=== PATIENT | female | born 1935 | race Caucasian/White ===

== ENCOUNTER 2017-07-21 17:55 | Inpatient (IN) | payer MEDICARE, OTHER ==
[2017-07-21] MEDS ORDERED: SODIUM CHLORIDE 0.9% 1,000 ML IV STA (19:19)
--- NOTE | 2017-07-21 19:22 | ED ---
General Adult HPI - General Chief complaint: Syncope Stated complaint: syncope Time Seen by Provider: 07/21/17 18:43 Source: patient, family, EMS, RN notes reviewed Mode of arrival: EMS Limitations: no limitations, altered mental status - History of Present Illness Initial comments: Patient is a pleasant 81-year-old female presenting to the emergency department following syncopal episode. Episode occurred prior to arrival. Patient was outside looking at the jeronimo. Patient became unresponsive for up to 5 minutes. Patient felt fine prior to and since the episode and is currently symptom-free. Patient had an episode yesterday that was somewhat similar however did have some shaking yesterday. Patient has had some minimal episodes of chest discomfort recently that just last for a few seconds. No chest discomfort at all today. - Related Data Home Medications Medication Instructions Recorded Confirmed Albuterol Sulfate [Proair Hfa] 1 - 2 puff INHALATION RT-Q6H PRN 05/08/15 Levothyroxine Sodium [Synthroid] 75 mcg PO DAILY 05/08/15 07/21/17 Vitamin B Complex 1 cap PO DAILY 05/08/15 07/21/17 Vitamin E 1,000 unit PO DAILY 05/08/15 07/21/17 traMADol HCl [Ultram] 50 mg PO TID PRN 05/08/15 07/21/17 Atorvastatin [Lipitor] 20 mg PO HS 07/21/17 07/21/17 Citalopram Hydrobromide [CeleXA] 10 mg PO DAILY 07/21/17 07/21/17 Montelukast [Singulair] 10 mg PO DAILY 07/21/17 07/21/17 Omeprazole 40 mg PO DAILY 07/21/17 07/21/17 Sertraline [Zoloft] 50 mg PO DAILY 07/21/17 07/21/17 Topiramate 50 mg PO DAILY 07/21/17 07/21/17 amLODIPine BESYLATE [Norvasc] 2.5 mg PO DAILY 07/21/17 07/21/17 hydrOXYzine HCL [Atarax] 25 mg PO TID PRN 07/21/17 07/21/17 Allergies Allergy/AdvReac Type Severity Reaction Status Date / Time codeine Allergy Unknown Verified 07/21/17 18:52 Sulfa (Sulfonamide Allergy Unknown Verified 08/21/17 18:52 Antibiotics) Review of Systems ROS Statement: Those systems with pertinent positive or pertinent negative responses have been documented in the HPI. ROS Other: All systems not noted in ROS Statement are negative. Constitutional: Denies: fever Eyes: Denies: eye pain ENT: Denies: ear pain Respiratory: Denies: cough, dyspnea Cardiovascular: Denies: palpitations Endocrine: Denies: fatigue Gastrointestinal: Denies: abdominal pain Genitourinary: Denies: urgency Musculoskeletal: Denies: back pain Skin: Denies: rash Neurological: Denies: weakness Past Medical History Past Medical History: Asthma, Cancer, Chest Pain / Angina, GERD/Reflux, Hyperlipidemia, Hypertension, Osteoarthritis (OA), Thyroid Disorder Additional Past Medical History / Comment(s): skin ca on rt hand, "stated "right eye vision affected by a clot" History of Any Multi-Drug Resistant Organisms: None Reported Past Surgical History: Breast Surgery, Tonsillectomy, Tubal Ligation Additional Past Surgical History / Comment(s): 2 benign lumps in rt breast removed, RIGHT CARPAL TUNNEL 05/2015 Past Anesthesia/Blood Transfusion Reactions: Motion Sickness, Postoperative Nausea & Vomiting (PONV) Past Psychological History: No Psychological Hx Reported Smoking Status: Former smoker - Past Family History Mother Family Medical History: Cancer Additional Family Medical History / Comment(s): breast General Exam Limitations: no limitations, altered mental status General appearance: alert, in no apparent distress Head exam: Present: atraumatic Eye exam: Present: normal appearance, PERRL ENT exam: Present: normal oropharynx Neck exam: Present: normal inspection Respiratory exam: Present: normal lung sounds bilaterally. Absent: chest wall tenderness Cardiovascular Exam: Present: regular rate, normal rhythm Expanded Peripheral pulses: 2+: Radial (R), Radial (L), Dorsalis Pedis (R), Dorsalis Pedis (L) GI/Abdominal exam: Present: soft. Absent: tenderness Extremities exam: Present: normal inspection. Absent: pedal edema, calf tenderness Neurological exam: Present: alert, CN II-XII intact. Absent: motor sensory deficit Expanded Motor strength exam: RUE: 5, LUE: 5, RLE: 5, LLE: 5 Psychiatric exam: Present: normal affect, normal mood Skin exam: Present: normal color Course Vital Signs 07/21/17 07/21/17 07/21/17 18:20 18:41 19:50 Temperature 98.0 F 98.8 F Pulse Rate 60 53 L 58 L Respiratory 18 18 18 Rate Blood Pressure 117/57 103/48 125/59 O2 Sat by Pulse 97 97 96 Oximetry EKG Findings - EKG Comments: EKG Findings:: Sinus bradycardia 56. NH 170. QRS 86. QTc 462. QTC 445. Normal axis. Low QRS voltage. No acute ST change. Medical Decision Making - Medical Decision Making Patient reevaluated and resting comfortably in bed. Patient and family updated on results and plan. Case was discussed with practitioner Ana Luisa, who admit for Dr. caceres, covering for Dr. Gleason. - Lab Data Result diagrams: 07/21/17 18:28 07/21/17 18:28 Lab Results 07/21/17 07/21/17 07/21/17 Range/Units 18:28 18:28 18:28 WBC 7.1 (3.8-10.6) k/uL RBC 4.23 (3.80-5.40) m/uL Hgb 12.7 (11.4-16.0) gm/dL Hct 37.0 (34.0-46.0) % MCV 87.6 (80.0-100.0) fL MCH 29.9 (25.0-35.0) pg MCHC 34.2 (31.0-37.0) g/dL RDW 13.6 (11.5-15.5) % Plt Count 215 (150-450) k/uL Neutrophils % 79 % Lymphocytes % 10 % Monocytes % 5 % Eosinophils % 3 % Basophils % 1 % Neutrophils # 5.6 (1.3-7.7) k/uL Lymphocytes # 0.7 L (1.0-4.8) k/uL Monocytes # 0.4 (0-1.0) k/uL Eosinophils # 0.2 (0-0.7) k/uL Basophils # 0.1 (0-0.2) k/uL Sodium 141 (137-145) mmol/L Potassium 3.8 (3.5-5.1) mmol/L Chloride 109 H (98-107) mmol/L Carbon Dioxide 22 (22-30) mmol/L Anion Gap 10 mmol/L BUN 18 H (7-17) mg/dL Creatinine 1.04 (0.52-1.04) mg/dL Est GFR (MDRD) Af Amer >60 (>60 ml/min/1.73 sqM) Est GFR (MDRD) Non-Af 51 (>60 ml/min/1.73 sqM) Glucose 107 H (74-99) mg/dL Calcium 8.8 (8.4-10.2) mg/dL Magnesium 1.8 (1.6-2.3) mg/dL Total Bilirubin 0.3 (0.2-1.3) mg/dL AST 17 (14-36) U/L ALT 18 (9-52) U/L Alkaline Phosphatase 60 (38-126) U/L Total Creatine Kinase 47 (30-135) U/L CK-MB (CK-2) 0.9 (0.0-2.4) ng/mL CK-MB (CK-2) Rel Index 1.9 Troponin I <0.012 (0.000-0.034) ng/mL Total Protein 5.8 L (6.3-8.2) g/dL Albumin 3.4 L (3.5-5.0) g/dL Urine Color Urine Appearance (Clear) Urine pH (5.0-8.0) Ur Specific [place] (1.001-1.035) Urine Protein (Negative) Urine Glucose (UA) (Negative) Urine Ketones (Negative) Urine Blood (Negative) Urine Nitrite (Negative) Urine Bilirubin (Negative) Urine Urobilinogen (<2.0) mg/dL Ur Leukocyte Esterase (Negative) Urine WBC (0-5) /hpf Ur Squamous Epith Cells (0-4) /hpf Urine Mucus (None) /hpf 07/21/17 Range/Units 19:50 WBC (3.8-10.6) k/uL RBC (3.80-5.40) m/uL Hgb (11.4-16.0) gm/dL Hct (34.0-46.0) % MCV (80.0-100.0) fL MCH (25.0-35.0) pg MCHC (31.0-37.0) g/dL RDW (11.5-15.5) % Plt Count (150-450) k/uL Neutrophils % % Lymphocytes % % Monocytes % % Eosinophils % % Basophils % % Neutrophils # (1.3-7.7) k/uL Lymphocytes # (1.0-4.8) k/uL Monocytes # (0-1.0) k/uL Eosinophils # (0-0.7) k/uL Basophils # (0-0.2) k/uL Sodium (137-145) mmol/L Potassium (3.5-5.1) mmol/L Chloride (98-107) mmol/L Carbon Dioxide (22-30) mmol/L Anion Gap mmol/L BUN (7-17) mg/dL Creatinine (0.52-1.04) mg/dL Est GFR (MDRD) Af Amer (>60 ml/min/1.73 sqM) Est GFR (MDRD) Non-Af (>60 ml/min/1.73 sqM) Glucose (74-99) mg/dL Calcium (8.4-10.2) mg/dL Magnesium (1.6-2.3) mg/dL Total Bilirubin (0.2-1.3) mg/dL AST (14-36) U/L ALT (9-52) U/L Alkaline Phosphatase (38-126) U/L Total Creatine Kinase (30-135) U/L CK-MB (CK-2) (0.0-2.4) ng/mL CK-MB (CK-2) Rel Index Troponin I (0.000-0.034) ng/mL Total Protein (6.3-8.2) g/dL Albumin (3.5-5.0) g/dL Urine Color Yellow Urine Appearance Cloudy H (Clear) Urine pH 5.5 (5.0-8.0) Ur Specific [place] 1.022 (1.001-1.035) Urine Protein Trace H (Negative) Urine Glucose (UA) Negative (Negative) Urine Ketones Negative (Negative) Urine Blood Negative (Negative) Urine Nitrite Negative (Negative) Urine Bilirubin Negative (Negative) Urine Urobilinogen 3.0 (<2.0) mg/dL Ur Leukocyte Esterase Moderate H (Negative) Urine WBC 6 H (0-5) /hpf Ur Squamous Epith Cells 1 (0-4) /hpf Urine Mucus Occasional H (None) /hpf - Radiology Data Radiology results: report reviewed (Computed tomography scan of the brain shows mild normal pressure hydrocephalus. Atrophy. No acute intercranial process.), image reviewed (Chest x-ray shows no acute process.) Disposition Clinical Impression: Syncope Disposition: ADMITTED IP TO THIS HOSP Referrals: Venancio Gleason MD [Primary Care Provider] - 1-2 days Decision Time: 20:34
[2017-07-21 19:39] LABS: Basophils # (A) 0.1 k/uL (0-0.2); Basophils % (A) 1 %; CH 29.4; CHCM 33.7; Eosinophils # (A) 0.2 k/uL (0-0.7); Eosinophils % (A) 3 %; HGB 12.7 gm/dL (11.4-16.0); Luc # (Auto) 0.12; Luc % (Auto) 2; Lymphocytes # (A) 0.7 k/uL (1.0-4.8); Lymphocytes % (A) 10 %; MCH 29.9 pg (25.0-35.0); MCHC 34.2 g/dL (31.0-37.0); MCV 87.6 fL (80.0-100.0); Mean Platelet Volume 7.9; Monocytes # (A) 0.4 k/uL (0-1.0); Monocytes % (A) 5 %; Neutrophils # (A) 5.6 k/uL (1.3-7.7); Neutrophils % (A) 79 %; RBC 4.23 m/uL (3.80-5.40); RDW 13.6 % (11.5-15.5); WBC 7.1 k/uL (3.8-10.6); WBC (Perox) 7.35
[2017-07-21 19:48] LABS: ALT 18 U/L (9-52); AST 17 U/L (14-36); Alkaline Phosphatase 60 U/L (38-126); Anion Gap 10 mmol/L; Blood Urea Nitrogen 18 mg/dL (7-17); Calcium 8.8 mg/dL (8.4-10.2); Carbon Dioxide 22 mmol/L (22-30); Chloride 109 mmol/L (98-107); Glucose 107 mg/dL (74-99); Magnesium 1.8 mg/dL (1.6-2.3); Non-African American GFR(MDRD) 51 (>60 ml/min/1.73 sqM); Potassium 3.8 mmol/L (3.5-5.1); Sodium 141 mmol/L (137-145); Total Bilirubin 0.3 mg/dL (0.2-1.3); Total Protein 5.8 g/dL (6.3-8.2)
--- NOTE | 2017-07-21 19:54 | XR ---
EXAMINATION TYPE: XR chest 2V DATE OF EXAM: 07/21/2017 COMPARISON: NONE HISTORY: Syncope TECHNIQUE: Frontal and lateral views of the chest are obtained. FINDINGS: There is no heart failure nor confluent pneumonic infiltrate. Thoracic aorta is atheromato us. Heart is probably enlarged. There is probably a hiatal hernia. There is thoracolumbar kyphotic cu rvature. There are chest leads. IMPRESSION: Atheromatous aorta. Kyphotic curvature. Mild cardiomegaly.
[2017-07-21 20:01] LABS: Creatine Kinase 47 U/L (30-135)
[2017-07-21 20:08] LABS: Appearance,Urine Cloudy (Clear); Bilirubin,Urine Negative (Negative); Glucose,Urine (UA) Negative (Negative); Ketones,Urine Negative (Negative); Leukocyte Esterase,Urine Moderate (Negative); Mucus,Urine Occasional /hpf; Nitrite,Urine Negative (Negative); PH, Urine 5.5 (5.0-8.0); Particle Count 3298; Protein,Urine Trace (Negative); Specific Gravity,Urine 1.022 (1.001-1.035); Squamous Epithelial Cell,Urine 1 /hpf (0-4); UA Billing (MACRO vs. MICRO) MICRO; WBC,Urine 6 /hpf (0-5)
[2017-07-21 20:13] LABS: Creatine Kinase MB 0.9 ng/mL (0.0-2.4); Troponin I <0.012 ng/mL (0.000-0.034)
--- NOTE | 2017-07-21 20:23 | CT ---
EXAMINATION TYPE: CT brain wo con DATE OF EXAM: 07/21/2017 COMPARISON: NONE HISTORY: Syncopal episode today. CT DLP: 1011.90 mGycm Automated exposure control for dose reduction was used. FINDINGS: There is frontal lobe atrophy. There is no mass effect nor midline shift. There is no sign of intracr anial hemorrhage. There is mild prominence of the ventricles. Calvarium is intact. IMPRESSION: FRONTAL LOBE ATROPHY. MILD NORMAL PRESSURE TYPE HYDROCEPHALUS. NO ACUTE INTRACRANIAL ABNORMALITY.
[2017-07-21] MEDS ORDERED: NALOXONE 0.4 MG/ML 1 ML VIAL IV PRN (20:34)
[2017-07-21 20:50] LABS: INR 1.1 (<1.2); Partial Thromboplastin Time 25.3 sec (22.0-30.0); Prothrombin Time 11.1 sec (9.0-12.0)
[2017-07-21] MEDS: SODIUM CHLORIDE 0.9% 1,000 ML IV SCH (20:59)
[2017-07-21] MEDS ORDERED: traMADol 50 MG TAB PO PRN (21:52)
[2017-07-22] MEDS: LEVOTHYROXINE 75 MCG TAB PO SCH (06:30)
[2017-07-22] MEDS: PANTOPRAZOLE 40 MG TABLET PO SCH (06:30)
[2017-07-22] MEDS: SERTRALINE 50 MG TAB PO SCH (08:37)
[2017-07-22] MEDS: TOPIRAMATE 25 MG TAB PO SCH (08:37)
[2017-07-22] MEDS: CITALOPRAM HYDROBROMIDE 10 MG TAB PO SCH (08:38)
[2017-07-22] MEDS: amLODIPine 2.5 MG TAB PO SCH (08:38)
[2017-07-22] MEDS: ENOXAPARIN 40 MG/0.4 ML SYRINGE SQ SCH (08:38)
--- NOTE | 2017-07-22 08:57 | US ---
EXAMINATION TYPE: US carotid duplex BILAT DATE OF EXAM: 07/22/2017 COMPARISON: NONE CLINICAL HISTORY: syncope. EXAM MEASUREMENTS: RIGHT: Peak Systolic Velocity (PSV) cm/sec ----- Right CCA: 70.2 ----- Right ICA: 120.0 ----- Right ECA: 122.0 ICA/CCA ratio: 1.7 RIGHT: End Diastole cm/sec ----- Right CCA: 15.3 ----- Right ICA: 23.4 ----- Right ECA: 9.7 LEFT: Peak Systolic Velocity (PSV) cm/sec ----- Left CCA: 60.7 ----- Left ICA: 161.4 ----- Left ECA: 62.5 ICA/CCA ratio: 2.7 LEFT: End Diastole cm/sec ----- Left CCA: 12.8 ----- Left ICA: 24.8 ----- Left ECA: 6.5 VERTEBRALS (direction of flow): Right Vertebral: Antegrade Left Vertebral: Antegrade Moderate/severe amount of plaque visualized in bilateral bulbs. Elevated velocities within the right bulb, left bulb, and left ICA. IMPRESSION: Findings suspicious for hemodynamic significant stenosis involving the proximal internal carotid artery on the left approximately 50-69% diameter reduction, and indirect measurement of johnson tid stenosis. Dense calcification of the carotid bulbs could limit evaluation. Consider carotid CTA o r MRA for better evaluation Criteria for Assigning % of Stenosis / Diameter reduction (Estimation based on the indirect measurements of the internal carotid artery velocities (ICA PSV). 1. Normal (no stenosis)=ICA PSV < 125 cm/s: ratio < 2.0: ICA EDV<40 cm/s. 2. Less than 50% stenosis=ICA PSV < 125 cm/s: ratio < 2.0: ICA EDV<40 cm/s. 3. 50 to 69% stenosis=ICA PSV of 125 to 230 cm/s: ration 2.0 ? 4.0: ICA EDV 40-100 cm/s. 4. Greater than 70% stenosis to near occlusion= ICA PSV > 230 cm/s: ratio > 4.0: ICA EDV > 100 cm/s. 5. Near occlusion= ICA PSV velocities may be low or undetectable: variable ratio and ICA EDV. 6. Total occlusion=unable to detect flow.
--- NOTE | 2017-07-22 11:39 | P.CRDCN ---
<Joanna Pineda E - Last Filed: 07/22/17 11:19> History of Present Illness Consult date: 07/22/17 Requesting physician: Pantera Oneil Consult reason: sycope Chief complaint: Syncope History of present illness: This is a pleasant 81-year-old female with history of hypertension, hyperlipidemia, prior thyroidectomy, asthma, prior history of smoking, who presented to the hospital following a syncopal episode. The history was obtained from both the patient and the . Patient apparently was outside working in her garden, and without warning passed out and fell to the ground. Apparently the day prior to that, a neighbor next door also found her on the ground unresponsive, however the day prior she also had some associated shaking and tremor-like activity. Patient did not lose bowel or bladder function. According to the she was complaining of feeling dizzy although the patient doesn't recall that herself. She does appear to have some memory loss which she states has been worsening over the past one year or so either secondary to early Alzheimer's or dementia. Patient does state that she has seen a marine driller over in the office recently, she is unsure of his name. CAT scan on arrival here reveals frontal lobe atrophy no acute intracranial abnormality. Chest x-ray reveals atheromatous aorta. Kyphotic curvature and mild cardiomegaly. EKG shows sinus bradycardia with nonspecific ST-T wave changes. Carotid Doppler study was performed, findings suspicious for significant stenosis involving the proximal internal carotid artery on the left. Blood pressure on arrival 116/57 with a heart rate in the 50s to 60s. Orthostatics were negative. CBC normal, potassium 3.8, BUN 18, creatinine 1.0. Magnesium 1.8. Troponins negative 3. At the time of my examination this morning, patient denies any dizziness or lightheadedness, no chest discomfort. Patient does state however that she has been experiencing pressure in her chest off and on, he states that it is only when she exerts herself too much, when she sits or rested improved. Past Medical History Past Medical History: Asthma, Cancer, Chest Pain / Angina, GERD/Reflux, Hyperlipidemia, Hypertension, Osteoarthritis (OA), Thyroid Disorder Additional Past Medical History / Comment(s): skin ca on rt hand, "stated "right eye vision affected by a clot" History of Any Multi-Drug Resistant Organisms: None Reported Past Surgical History: Breast Surgery, Tonsillectomy, Tubal Ligation Additional Past Surgical History / Comment(s): 2 benign lumps in rt breast removed, RIGHT CARPAL TUNNEL 05/2015 Past Anesthesia/Blood Transfusion Reactions: Motion Sickness, Postoperative Nausea & Vomiting (PONV) Past Psychological History: No Psychological Hx Reported Smoking Status: Former smoker Past Alcohol Use History: Rare Past Drug Use History: None Reported - Past Family History Mother Family Medical History: Cancer Additional Family Medical History / Comment(s): breast Medications and Allergies Home Medications Medication Instructions Recorded Confirmed Type Albuterol Sulfate [Proair Hfa] 1 - 2 puff INHALATION RT-Q6H PRN 05/08/15 History Levothyroxine Sodium [Synthroid] 75 mcg PO DAILY 05/08/15 07/21/17 History Vitamin B Complex 1 cap PO DAILY 05/08/15 07/21/17 History Vitamin E 1,000 unit PO DAILY 05/08/15 07/21/17 History traMADol HCl [Ultram] 50 mg PO TID PRN 05/08/15 07/21/17 History Atorvastatin [Lipitor] 20 mg PO HS 07/21/17 07/21/17 History Citalopram Hydrobromide [CeleXA] 10 mg PO DAILY 07/21/17 07/21/17 History Montelukast [Singulair] 10 mg PO DAILY 07/21/17 07/21/17 History Omeprazole 40 mg PO DAILY 07/21/17 07/21/17 History Sertraline [Zoloft] 50 mg PO DAILY 07/21/17 07/21/17 History Topiramate 50 mg PO DAILY 07/21/17 07/21/17 History amLODIPine BESYLATE [Norvasc] 2.5 mg PO DAILY 07/21/17 07/21/17 History hydrOXYzine HCL [Atarax] 25 mg PO TID PRN 07/21/17 07/21/17 History Allergies Allergy/AdvReac Type Severity Reaction Status Date / Time codeine Allergy Unknown Verified 07/21/17 18:52 Sulfa (Sulfonamide Allergy Unknown Verified 07/21/17 18:52 Antibiotics) Physical Exam Vitals: Vital Signs Temp Pulse Pulse Pulse Resp BP BP 07/22/17 08:00 98.1 F 53 L 16 07/22/17 04:00 97.5 F L 52 L 53 L 18 142/73 07/22/17 00:00 59 L 18 07/21/17 22:09 71 18 143/63 07/21/17 20:59 98.8 F 55 L 18 117/58 07/21/17 19:50 98.8 F 58 L 18 125/59 07/21/17 18:41 53 L 18 103/48 07/21/17 18:20 98.0 F 60 18 117/57 BP BP BP Pulse Ox 07/22/17 08:00 136/66 97 07/22/17 04:00 128/67 144/60 94 L 07/22/17 00:00 148/111 98 07/21/17 22:09 98 07/21/17 20:59 98 07/21/17 19:50 96 07/21/17 18:41 97 07/21/17 18:20 97 Intake and Output 07/21/17 07/22/17 07/22/17 22:59 06:59 14:59 Intake Total 600 240 Balance 600 240 Intake: IV 600 Sodium Chloride 0.9% 1, 600 000 ml @ 100 mls/hr IV . Q10H STA Rx#:[id number] Oral 240 Other: Voiding Method Toilet Toilet # Voids 2 Weight 69.4 kg 68.4 kg PHYSICAL EXAMINATION: HEENT: Head is atraumatic, normocephalic. Pupils equal, round. Neck is supple. There is no elevated jugular venous pressure. HEART EXAMINATION: Heart S1, S2 normal. No murmur or gallop heard. CHEST EXAMINATION: Lungs are clear to auscultation and precussion. No chest wall tenderness is noted on palpation or with deep breathing.] ABDOMEN: [ Soft, nontender. Bowel sounds are heard. No organomegaly noted]. EXTREMITIES:[ 2+ peripheral pulses with no evidence of peripheral edema and no calf tenderness noted]. NEUROLOGIC [patient is awake, alert and oriented -3.] . Results 07/21/17 18:28 07/21/17 18:28 Cardiac Enzymes 07/21/17 07/21/17 07/21/17 Range/Units 18:28 18:28 23:47 AST 17 (14-36) U/L CK-MB (CK-2) 0.9 (0.0-2.4) ng/mL Troponin I <0.012 <0.012 (0.000-0.034) ng/mL 07/22/17 Range/Units 06:04 AST (14-36) U/L CK-MB (CK-2) (0.0-2.4) ng/mL Troponin I <0.012 (0.000-0.034) ng/mL Coagulation 07/21/17 Range/Units 18:28 PT 11.1 (9.0-12.0) sec APTT 25.3 (22.0-30.0) sec CBC 07/21/17 Range/Units 18:28 WBC 7.1 (3.8-10.6) k/uL RBC 4.23 (3.80-5.40) m/uL Hgb 12.7 (11.4-16.0) gm/dL Hct 37.0 (34.0-46.0) % Plt Count 215 (150-450) k/uL Comprehensive Metabolic Panel 07/21/17 Range/Units 18:28 Sodium 141 (137-145) mmol/L Potassium 3.8 (3.5-5.1) mmol/L Chloride 109 H (98-107) mmol/L Carbon Dioxide 22 (22-30) mmol/L BUN 18 H (7-17) mg/dL Creatinine 1.04 (0.52-1.04) mg/dL Glucose 107 H (74-99) mg/dL Calcium 8.8 (8.4-10.2) mg/dL AST 17 (14-36) U/L ALT 18 (9-52) U/L Alkaline Phosphatase 60 (38-126) U/L Total Protein 5.8 L (6.3-8.2) g/dL Albumin 3.4 L (3.5-5.0) g/dL Current Medications Generic Name Dose Route Start Last Admin Trade Name Freq PRN Reason Stop Dose Admin Amlodipine Besylate 2.5 mg 07/22/17 09:00 07/22/17 08:38 Norvasc PO 2.5 mg DAILY GEORGE Administration Atorvastatin Calcium 20 mg 07/22/17 21:00 Lipitor PO HS COUNTS INCLUDE 234 BEDS AT [facility] Citalopram Hydrobromide 10 mg 07/22/17 09:00 07/22/17 08:38 Celexa PO 10 mg DAILY GEORGE Administration Enoxaparin Sodium 40 mg 07/22/17 09:00 07/22/17 08:38 Lovenox SQ 40 mg DAILY GEORGE Administration Hydroxyzine HCl 25 mg 07/21/17 21:52 Atarax PO TID PRN Anxiety Sodium Chloride 1,000 mls @ 20 mls/hr 07/21/17 20:45 07/21/17 20:59 Saline 0.9% IV 20 mls/hr .Q24H GEORGE Administration Levothyroxine Sodium 75 mcg 07/22/17 07:30 07/22/17 06:30 Synthroid PO 75 mcg AC-BRKFST GEORGE Administration Montelukast Sodium 10 mg 07/22/17 21:00 Singulair PO HS GEORGE Naloxone HCl 0.2 mg 07/21/17 20:34 Narcan IV Q2M PRN Opioid Reversal Pantoprazole Sodium 40 mg 07/22/17 07:30 07/22/17 06:30 Protonix PO 40 mg AC-BRKFST GEORGE Administration Sertraline HCl 50 mg 07/22/17 09:00 07/22/17 08:37 Zoloft PO 50 mg DAILY GEORGE Administration Topiramate 50 mg 07/22/17 09:00 07/22/17 08:37 Topamax PO 50 mg DAILY GEORGE Administration Tramadol HCl 50 mg 07/21/17 21:52 Ultram PO TID PRN Pain Intake and Output 07/21/17 07/22/17 07/22/17 22:59 06:59 14:59 Intake Total 600 240 Balance 600 240 Intake: IV 600 Sodium Chloride 0.9% 1, 600 000 ml @ 100 mls/hr IV . Q10H STA Rx#:[id number] Oral 240 Other: Voiding Method Toilet Toilet # Voids 2 Weight 69.4 kg 68.4 kg 07/21/17 18:28 07/21/17 18:28 EKG Interpretations (text) EKG shows a sinus bradycardia with nonspecific ST-T wave changes Assessment and Plan Plan: Assessment and plan #1 syncope rule out cardiac causes. EKG shows a sinus bradycardia with nonspecific ST-T wave changes. No orthostatics documented. #2 hypertension #3 hyperlipidemia #4 prior thyroidectomy #5 mild dementia #6History of smoking #7 asthma Plan We will obtain an echocardiogram with Doppler study. Continue to monitor for any tachycardia or bradycardia arrhythmias. Obtain TSH level. Further recommendations to follow. DNP note has been reviewed, I agree with a documented findings and plan of care. Patient was seen and examined. <LevaryessicaHayderBen - Last Filed: 07/23/17 14:04> Physical Exam Vitals: Vital Signs Temp Pulse Pulse Pulse Resp BP BP 07/23/17 09:20 49 L 146/85 158/84 07/23/17 08:00 98 F 50 L 16 07/23/17 04:00 97.8 F 51 L 16 138/72 133/66 07/23/17 00:00 49 L 52 L 16 07/22/17 20:00 97.0 F L 65 48 L 48 L 16 07/22/17 19:35 07/22/17 16:00 97.8 F 52 L 16 140/69 BP Pulse Ox 07/23/17 09:20 137/71 07/23/17 08:00 121/82 96 07/23/17 04:00 139/79 97 07/23/17 00:00 141/74 97 07/22/17 20:00 145/73 98 07/22/17 19:35 96 07/22/17 16:00 96 Intake and Output 07/22/17 07/23/17 07/23/17 22:59 06:59 14:59 Intake Total 320 220 240 Balance 320 220 240 Intake: IV 100 Sodium Chloride 0.9% 1, 100 000 ml @ 100 mls/hr IV . Q10H STA Rx#:[id number] Intake, IV Titration 80 120 Amount Sodium Chloride 0.9% 1, 80 120 000 ml @ 20 mls/hr IV . Q24H GEORGE Rx#:[id number] Oral 240 240 Other: Voiding Method Toilet Toilet # Voids 1 1 Weight 68.5 kg Results 07/21/17 18:28 07/21/17 18:28 Current Medications Generic Name Dose Route Start Last Admin Trade Name Freq PRN Reason Stop Dose Admin Amlodipine Besylate 2.5 mg 07/22/17 09:00 07/23/17 08:58 Norvasc PO 2.5 mg DAILY GEORGE Administration Atorvastatin Calcium 20 mg 07/22/17 21:00 07/22/17 21:09 Lipitor PO 20 mg HS GEORGE Administration Citalopram Hydrobromide 10 mg 07/22/17 09:00 07/23/17 08:58 Celexa PO 10 mg DAILY GEORGE Administration Enoxaparin Sodium 40 mg 07/22/17 09:00 07/23/17 08:58 Lovenox SQ 40 mg DAILY GEORGE Administration Hydroxyzine HCl 25 mg 07/21/17 21:52 Atarax PO TID PRN Anxiety Sodium Chloride 1,000 mls @ 20 mls/hr 07/21/17 20:45 07/22/17 21:09 Saline 0.9% IV 20 mls/hr .Q24H GEORGE Administration Levothyroxine Sodium 75 mcg 07/22/17 07:30 07/23/17 06:15 Synthroid PO 75 mcg AC-BRKFST GEORGE Administration Miscellaneous Information 1 each 07/23/17 12:45 Rx Info: Iv Contrast Was Given MISCELLANE 07/25/17 12:46 DAILY PRN Per Protocol Montelukast Sodium 10 mg 07/22/17 21:00 07/22/17 21:09 Singulair PO 10 mg HS GEORGE Administration Naloxone HCl 0.2 mg 07/21/17 20:34 Narcan IV Q2M PRN Opioid Reversal Pantoprazole Sodium 40 mg 07/22/17 07:30 07/23/17 06:14 Protonix PO 40 mg AC-BRKFST GEORGE Administration Sertraline HCl 50 mg 07/22/17 09:00 07/23/17 08:58 Zoloft PO 50 mg DAILY GEORGE Administration Topiramate 50 mg 07/22/17 09:00 07/23/17 08:58 Topamax PO 50 mg DAILY GEORGE Administration Tramadol HCl 50 mg 07/21/17 21:52 Ultram PO TID PRN Pain Intake and Output 07/22/17 07/23/17 07/23/17 22:59 06:59 14:59 Intake Total 320 220 240 Balance 320 220 240 Intake: IV 100 Sodium Chloride 0.9% 1, 100 000 ml @ 100 mls/hr IV . Q10H STA Rx#:[id number] Intake, IV Titration 80 120 Amount Sodium Chloride 0.9% 1, 80 120 000 ml @ 20 mls/hr IV . Q24H GEORGE Rx#:[id number] Oral 240 240 Other: Voiding Method Toilet Toilet # Voids 1 1 Weight 68.5 kg 07/21/17 18:28 07/21/17 18:28
--- NOTE | 2017-07-22 19:33 | ECHOF ---
Referral Reason:syncope MEASUREMENTS -------- HEIGHT: 152.4 cm WEIGHT: 68.0 kg BP: 142/73 RVIDd: 2.5 cm (< 3.3) IVSd: 1.2 cm (0.6 - 1.1) LVIDd: 4.4 cm (3.9 - 5.3) LVPWd: 1.2 cm (0.6 - 1.1) IVSs: 1.4 cm LVIDs: 3.9 cm LVPWs: 1.2 cm LA Diam: 3.6 cm (2.7 - 3.8) MV EXCURSION: 14.577 mm (> 18.000) MV EF SLOPE: 54 mm/s (70 - 150) EPSS: 0.8 cm MV E Alejandro: 0.69 m/s MV DecT: 203 ms MV A Alejandro: 0.79 m/s MV E/A Ratio: 0.87 RAP: 5.00 mmHg RVSP: 28.51 mmHg FINDINGS -------- Sinus rhythm. This was a technically adequate study. There is mild concentric left ventricular hypertrophy. Overall left ventricular systolic function is normal with, an EF between 55 - 60 %. The right ventricle is normal in size. The left atrial size is normal. The right atrial size is normal. The aortic valve is trileaflet, and appears structurally normal. No aortic stenosis or regurgitation. Mild mitral regurgitation is present. Mild tricuspid regurgitation present. There is no evidence of pulmonary hypertension. The right ventricular systolic pressure, as measured by Doppler, is 28.51mmHg. There is no pulmonic regurgitation present. The aortic root size is normal. Echo free space may represent effusion or a pericardial fat pad. CONCLUSIONS -------- 1. There is mild concentric left ventricular hypertrophy. 2. Overall left ventricular systolic function is normal with, an EF between 55 - 60 %. 3. Mild mitral regurgitation is present. 4. Mild tricuspid regurgitation present. 5. There is no evidence of pulmonary hypertension. 6. The right ventricular systolic pressure, as measured by Doppler, is 28.51mmHg. 7. There is no pulmonic regurgitation present. 8. Echo free space may represent effusion or a pericardial fat pad. EXTRACORPOREAL TECHNICIAN: Jaylin Armendariz RDCS
[2017-07-22] MEDS: SODIUM CHLORIDE 0.9% 1,000 ML IV SCH (21:09)
[2017-07-22] MEDS: MONTELUKAST 10 MG TAB PO SCH (21:09)
[2017-07-22] MEDS: ATORVASTATIN 20 MG TAB PO SCH (21:09)
[2017-07-23] MEDS: PANTOPRAZOLE 40 MG TABLET PO SCH (06:14)
[2017-07-23] MEDS: LEVOTHYROXINE 75 MCG TAB PO SCH (06:15)
--- NOTE | 2017-07-23 08:21 | HP ---
DATE OF ADMISSION: 07/21/17 PRESENTING COMPLAINT: Passed out. HISTORY OF PRESENTING COMPLAINT: Very pleasant 81-year-old patient of Dr. 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 Yesterday she had to take her for a cardiac test. She did skip her breakfast. Normally has lunch around noon and they missed that too. Around late afternoon she was out in the sun, temperature was up in the high 80s and the patient just felt dizzy and passed out. Neighbor picked up. The patient not sure if she has some discomfort in the throat. There was no perspiration. No weakness on any particular side. No change in speech. The patients memory is not the best she says which is chronically present. is at the bedside. Denies any chest pain. REVIEW OF SYSTEMS: Constitutional: Tired. HEENT: None. Respiratory: None. Cardiovascular: No precordial pain. Gastrointestinal: Heartburn. : None. Musculoskeletal: Aches and pains in different joints. Dermatological : None. Hematological: None . Lymphatics: None. PSYCHIATRY: None. Neurological: None. Past medical history of asthma, GERD, hyperlipidemia, hypertension, osteoarthritis, decreased vision in the right eye from blood clot, hypothyroidism. Past surgical history: Breast surgery, tonsillectomy, tubal ligation, benign tumor of the right breast removed. Right carpal tunnel. SOCIAL HISTORY: The patient smoked in the remote past. Alcohol rarely. . FAMILY HISTORY: Breast cancer. Home medications: 1. Topamax 50 mg daily. 2. Ultram 50 mg t.i.d. prn. 3. Vitamin E 1000 units daily. 4. Vitamin B complex one capsule po daily. 5. Synthroid 75 mcg po daily. 6. Zoloft 50 mg po daily. 7. Omeprazole 40 mg po daily. 8. Singulair 10 mg po daily. 9. Pro-Air one or two puffs q6h prn. 10. Atarax 25 mg po t.i.d. prn. 11. Norvasc 2.5 mg po daily. 12. Celexa 10 mg po daily. 13. Lipitor 20 mg po q.h.s. ALLERGIES: CODEINE, SULFA. On examination, vital signs on presentation: Temperature 98. Pulse 60. Respiratory rate 18. Blood pressure 117/57. Pulse ox 97% on room air. GENERAL APPEARANCE: Average build, lying in bed, tired appearing. EYES: pupils equal. Conjunctivae pale. HEENT: Oral cavity normal. NECK: JVD not raised. Mass not palpable. RESPIRATORY: Effort normal. LUNGS: Fair air entry. CARDIOVASCULAR: First and second sounds normal. No edema. ABDOMEN: Soft. Nontender. Liver and spleen not palpable. LYMPHATICS: No lymph nodes palpable in the neck and axillae. PSYCHIATRIC: The patient is forgetful when she talks but able to answer questions otherwise. Mood and affect normal. NEUROLOGICAL: Pupils equal and grossly intact. Power and sensation grossly intact. INVESTIGATIONS: White count 7.1, hemoglobin 12.7. Potassium 3.8. BUN 8, creatinine 8.8. TSH normal. ASSESSMENT: 1. Episode of the patient passing out with no focal symptoms. Actually most likely from clinical dehydration. The patient had not eaten any breakfast or lunch. BUN elevated. Blood pressure was not low but running slightly on the lower side. The patient is on an antihypertensive. 2. Intermittent asthma controlled. 3. Gastroesophageal reflux disease. 4. Hyperlipidemia. 5. Essential hypertension. 6. Primary osteoarthritis of multiple joints. 7. Hypothyroidism. 8. Possible ( ) disease versus frontal lobe atrophy causing dementia. PLAN: Home medications are resumed. The patient is on telemetry to rule out any arrhythmia, appears to be unlikely. Neurology was consulted and so was cardiology. Carotid Doppler does not show any critical stenosis. 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 Care was discussed at length with the patients and spouse, home medications resumed. Copy to Dr. Gleason. KIT
[2017-07-23] MEDS: ENOXAPARIN 40 MG/0.4 ML SYRINGE SQ SCH (08:58)
[2017-07-23] MEDS: SERTRALINE 50 MG TAB PO SCH (08:58)
[2017-07-23] MEDS: CITALOPRAM HYDROBROMIDE 10 MG TAB PO SCH (08:58)
[2017-07-23] MEDS: amLODIPine 2.5 MG TAB PO SCH (08:58)
[2017-07-23] MEDS: TOPIRAMATE 25 MG TAB PO SCH (08:58)
--- NOTE | 2017-07-23 12:39 | P.CNNES ---
History of Present Illness Consult date: 07/22/17 Reason for Consult: Patient admitted to hospital with syncopal episode and confusion. History of Present Illness: This patient is a 81-year-old right-handed white female who was admitted to [facility] after having a syncopal episode at home. According to her who provided the medical history today at bedside she was outside working in the garden when she apparently passed out and fell. This was witnessed by a neighbor who immediately came to her assistance. Apparently he tried to reach for her and she began shaking and was unresponsive for several minutes. He was able to get her inside the home with the attended to her. She was found unresponsive on the ground and had tremor like activity. Patient did not have any bowel or bladder incontinence. She has no previous history of seizures. Patient apparently did come around very slowly but EMS was called to the home. The patient has very little memory of the actual event. On further questioning apparently she had a similar episode 2 or 3 days prior. According to the she has been showing signs of early dementia with worsening memory loss over this past year. She was brought into the emergency room for further evaluation. She underwent a computed tomography scan of the brain on 07/21/2017. This CAT scan revealed evidence of frontal lobe atrophy and mild ventriculomegaly. There was no evidence of acute stroke or hemorrhage. The patient was subsequent admitted to the hospital. She is now examined at bedside with her who is also present. Apparently he states she has been showing signs of increasing memory loss over the past year. She requires 24-hour care at home as she becomes confused and unable to carry on her activities of daily living. She underwent a carotid Doppler ultrasound which revealed evidence of significant stenosis. We are recommending a vascular surgery consultation. The patient denies any previous history of head trauma or head injury. She has never experienced a witnessed seizure. We will recommend EEG to rule out possibility of partial seizures for this patient. We will continue close neurological follow-up for this patient. Would recommend cardiology consultation regarding possibility of vasovagal syncope. She may require a loop recorder or extended monitoring for cardiac arrhythmias well. We will await further recommendations from the western felt hat blocker. Patient is to continue on 1 aspirin daily for secondary stroke prevention. Neurology is now been consulted for further evaluation and recommendations. Review of Systems Constitutional: Denies chills, Denies fever Eyes: denies blurred vision, denies pain Ears, nose, mouth and throat: Denies headache, Denies sore throat Cardiovascular: Denies chest pain, Denies shortness of breath Respiratory: Denies cough Gastrointestinal: Denies abdominal pain, Denies diarrhea, Denies nausea, Denies vomiting Genitourinary: Denies dysuria, Denies hematuria Musculoskeletal: Denies myalgias Integumentary: Denies pruritus, Denies rash Neurological: Reports change in mentation, Reports confusion, Reports memory loss, Reports syncope, Denies numbness, Denies weakness Psychiatric: Denies anxiety, Denies depression Endocrine: Denies fatigue, Denies weight change Past Medical History Past Medical History: Asthma, Cancer, Chest Pain / Angina, GERD/Reflux, Hyperlipidemia, Hypertension, Osteoarthritis (OA), Thyroid Disorder Additional Past Medical History / Comment(s): skin ca on rt hand, "stated "right eye vision affected by a clot" History of Any Multi-Drug Resistant Organisms: None Reported Past Surgical History: Breast Surgery, Tonsillectomy, Tubal Ligation Additional Past Surgical History / Comment(s): 2 benign lumps in rt breast removed, RIGHT CARPAL TUNNEL 05/2015 Past Anesthesia/Blood Transfusion Reactions: Motion Sickness, Postoperative Nausea & Vomiting (PONV) Past Psychological History: No Psychological Hx Reported Smoking Status: Former smoker Past Alcohol Use History: Rare Past Drug Use History: None Reported - Past Family History Mother Family Medical History: Cancer Additional Family Medical History / Comment(s): breast Medications and Allergies Home Medications Medication Instructions Recorded Confirmed Type Albuterol Sulfate [Proair Hfa] 1 - 2 puff INHALATION RT-Q6H PRN 05/08/15 History Levothyroxine Sodium [Synthroid] 75 mcg PO DAILY 05/08/15 07/21/17 History Vitamin B Complex 1 cap PO DAILY 05/08/15 07/21/17 History Vitamin E 1,000 unit PO DAILY 05/08/15 07/21/17 History traMADol HCl [Ultram] 50 mg PO TID PRN 05/08/15 07/21/17 History Atorvastatin [Lipitor] 20 mg PO HS 07/21/17 07/21/17 History Citalopram Hydrobromide [CeleXA] 10 mg PO DAILY 07/21/17 07/21/17 History Montelukast [Singulair] 10 mg PO DAILY 07/21/17 07/21/17 History Omeprazole 40 mg PO DAILY 07/21/17 07/21/17 History Sertraline [Zoloft] 50 mg PO DAILY 07/21/17 07/21/17 History Topiramate 50 mg PO DAILY 07/21/17 07/21/17 History amLODIPine BESYLATE [Norvasc] 2.5 mg PO DAILY 07/21/17 07/21/17 History hydrOXYzine HCL [Atarax] 25 mg PO TID PRN 07/21/17 07/21/17 History Allergies Allergy/AdvReac Type Severity Reaction Status Date / Time codeine Allergy Unknown Verified 07/21/17 18:52 Sulfa (Sulfonamide Allergy Unknown Verified 07/21/17 18:52 Antibiotics) Physical Examination - Vital Signs Vital Signs: Vital Signs Temp Pulse Pulse Pulse Resp BP BP 07/22/17 08:00 98.1 F 53 L 16 07/22/17 04:00 97.5 F L 52 L 53 L 18 142/73 07/22/17 00:00 59 L 18 07/21/17 22:09 71 18 143/63 07/21/17 20:59 98.8 F 55 L 18 117/58 07/21/17 19:50 98.8 F 58 L 18 125/59 07/21/17 18:41 53 L 18 103/48 07/21/17 18:20 98.0 F 60 18 117/57 BP BP BP Pulse Ox 07/22/17 08:00 136/66 97 07/22/17 04:00 128/67 144/60 94 L 07/22/17 00:00 148/111 98 07/21/17 22:09 98 07/21/17 20:59 98 07/21/17 19:50 96 07/21/17 18:41 97 07/21/17 18:20 97 Intake and Output 07/21/17 07/22/17 07/22/17 22:59 06:59 14:59 Intake Total 600 240 Balance 600 240 Intake: IV 600 Sodium Chloride 0.9% 1, 600 000 ml @ 100 mls/hr IV . Q10H STA Rx#:[id number] Oral 240 Other: Voiding Method Toilet Toilet # Voids 2 Weight 69.4 kg 68.4 kg - Constitutional General appearance: average body habitus, cooperative - EENT EENT: PERRL, mucous membranes moist - Respiratory Respiratory: lungs clear, normal breath sounds - Cardiovascular Cardiovascular: regular rate, normal S1, normal S2 Extremities: no peripheral edema bilaterally - Gastrointestinal Gastrointestinal: normoactive bowel sounds - Integumentary Integumentary: normal - Neurologic Cranial nerve examination: PERRL, EOMI, VFF, V1/V2/V3 grossly intact, face symmetric, tongue midline, intact gag reflex, intact corneal reflex, normal palatal elevation Speech examination: intact Sensorimotor examination: intact Motor examination - right side: 45: biceps, triceps, wrist flexion, wrist extension, funeral arranger, hip flexors, knee extensors, dorsiflexion, toe extension (EHL) , plantarflexion Motor examination - left side: 45: biceps, triceps, wrist flexion, wrist extension, funeral arranger, hip flexors, knee extensors, dorsiflexion, toe extension (EHL) , plantarflexion Detailed sensory examination: intact Reflex and gait examination: intact Reflexes: 1+: ankle, bicep, knee, tricep - Musculoskeletal Musculoskeletal: no pain - Psychiatric Psychiatric: mood/affect appropriate, cooperative Results - Laboratory Findings CBC and BMP: 07/21/17 18:28 07/21/17 18:28 Abnormal Lab Findings: Abnormal Labs 07/21/17 07/21/17 07/21/17 18:28 18:28 19:50 Lymphocytes # 0.7 L Chloride 109 H BUN 18 H Glucose 107 H Total Protein 5.8 L Albumin 3.4 L Urine Appearance Cloudy H Urine Protein Trace H Ur Leukocyte Esterase Moderate H Urine WBC 6 H Urine Mucus Occasional H Assessment and Plan (1) Acute encephalopathy Status: Acute Code(s): G93.40 - ENCEPHALOPATHY, UNSPECIFIED (2) Frontal lobe syndrome Status: Acute Code(s): F07.0 - PERSONALITY CHANGE DUE TO KNOWN PHYSIOLOGICAL CONDITION (3) Memory loss Status: Acute Code(s): R41.3 - OTHER AMNESIA (4) Syncope Status: Acute Code(s): R55 - SYNCOPE AND COLLAPSE Plan: This patient is a 81-year-old female who was admitted to Hospital with symptoms of recurrent syncope at home. Apparently she was out in the garden working when she collapsed. Neighbor noticed her fall and came to assist her. Apparently she was shaking on the ground and was unresponsive for several minutes. She was taken inside the home. EMS was called to the scene and she was transported by EMS to the emergency room and [facility] for further evaluation. She was seen in the ER by Dr. Yang. Computed tomography scan of the brain was completed and failed to reveal any acute changes. She was admitted to hospital for further evaluation. CAT scan of the brain was reviewed and does reveal significant frontotemporal lobe atrophy. According to the she is showing signs of worsening memory loss over the past year. We will continue close neurological follow-up of this patient. This patient is admitted with acute syncope etiology undetermined. We will obtain a routine EEG to rule out partial seizures. We'll await further recommendations from cardiology as well. Her overall prognosis at this time remains very guarded. Time with Patient: Greater than 30
[2017-07-23] MEDS ORDERED: RX INFO: IV CONTRAST WAS GIVEN 1 EACH MISC MISCELLANE PRN (12:45)
--- NOTE | 2017-07-23 16:14 | CT ---
EXAMINATION TYPE: CT angio head neck DATE OF EXAM: 07/23/2017 HISTORY: Abnormal doppler, syncope. COMPARISON: Doppler carotid exam 07/22/2017 CT DLP: 1033.00 mGycm. Automated Exposure Control for Dose Reduction was Utilized. TECHNIQUE: CTA scan of the neck is performed with IV Contrast, patient injected with 130 mL of Visip aque 320, axial images are obtained, coronal and sagittal reformatted images are reviewed. Three-D re constructed images are created on an independent workstation and reviewed. FINDINGS: Carotid/Vascular Structures: There is a loop of the internal carotid artery on the left prior to entr y in the skull base. Kink is present within the proximal internal carotid artery on the right. There is dense, carotid artery calcification at the level of the bifurcation on the left. Dense calci fication makes accurate measurement difficult. 60-70% diameter reductions suspected in the common car otid artery on the left. Dense calcification also present at the carotid bulb on the right however no hemodynamic significant stenosis is evident on the right. There is a three-vessel arch. Common carot id, internal and external carotid arteries are patent. Vertebral arteries are patent. Vertebrobasilar system, internal carotid arteries are present within the brain. No evident aneurysm Other: Frontal subdural fluid collections are present suggestive of chronic subdural hemorrhage, ther e is low attenuation and there is a symmetric appearance, thickness is approximately 11-12 mm bilater ally. IMPRESSION: Hemodynamic significant stenosis in the carotid bulb on the left thought to represent 60- 70% diameter reduction, accurate measurement difficult due to large amount of carotid bulb calcificat ion
--- NOTE | 2017-07-23 16:18 | P.DS ---
Providers Date of admission: 07/21/17 20:34 Expected date of discharge: 07/23/17 Attending physician: Pantera Oneil Consults: 07/21/17 20:37 Consult Physician Urgent Consulting Provider: Gwen Hernandez Consult Reason/Comments: syncope Do you want consulting provider notified?: Yes Consult Physician Urgent Consulting Provider: Charito Crane Consult Reason/Comments: syncope Do you want consulting provider notified?: Yes Primary care physician: Venancio Gleason Hospital Course: FINAL DIAGNOSES: -Acute stroke possibly in the brainstem in the right MCA territory, likely ischemic, in a right-handed patient -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 -Essential hypertension -Idiopathic Parkinson's disease -Chronic seizure disorder -Chronic back pain with a pain pump in place -Chronic depression controlled -Primary osteoarthritis of the lower back with a pain pump in place -Acute dysarthria from stroke -Hyperlipidemia HOSPTIAL COURSE: 57-year-old female presented with sudden onset left-sided weakness, abnormal speech, diagnostics included head CT which was not conclusive for stroke, however current presentation confirmed stroke. Unable to perform MRI due to pain pump placement. Neurology consulted, aspirin daily, antihyperlipidemic initiated, physical therapy consulted. Labs revealed hyperlipidemia, for which she is prescribed Lipitor. Patient agreeable to work with physical therapy, tolerating her diet at about 50%, ambulatory with a walker and some standby assistance, last BM 07/22/2017. Patient's son and neighbor have made provision to be available with patient for safety and adjustment. Patient condition stable for discharge and would like to go home. CONSULTANTS Dr. Elidia Crane of neurology PHYSICAL EXAM: CARDIOVASCULAR: First and second sounds noted no edema RESPIRATORY: Effort normal, lungs clear to auscultation MUSKULOSKELETAL: Left arm and leg notably weaker, left wrist drop noted. NEUROLOGIC: Power and sensation grossly intact on the right, straight leg raise on left 20%, left arm raise unable to lift off the bed without assistance, left l wrist drop noted. Environmental Web Crawler notably weaker on left hand Patient was seen and examined by nurse practitioner Ana Luisa Gonzalez in all elements of the case discussed with attending Dr. Oneil DISPOSITION: Home to the care of her son and neighbor with home care. Plan - Discharge Summary New Discharge Prescriptions: Continue Albuterol Sulfate [Proair Hfa] 1 - 2 puff INHALATION RT-Q6H PRN PRN Reason: Shortness Of Breath Levothyroxine Sodium [Synthroid] 75 mcg PO DAILY traMADol HCl [Ultram] 50 mg PO TID PRN PRN Reason: Pain Vitamin E 1,000 unit PO DAILY Vitamin B Complex 1 cap PO DAILY Topiramate 50 mg PO DAILY Sertraline [Zoloft] 50 mg PO DAILY Omeprazole 40 mg PO DAILY Montelukast [Singulair] 10 mg PO DAILY hydrOXYzine HCL [Atarax] 25 mg PO TID PRN PRN Reason: Anxiety amLODIPine BESYLATE [Norvasc] 2.5 mg PO DAILY Citalopram Hydrobromide [CeleXA] 10 mg PO DAILY Atorvastatin [Lipitor] 20 mg PO HS Discharge Medication List Albuterol Sulfate [Proair Hfa] 1 - 2 puff INHALATION RT-Q6H PRN 05/08/15 [ History] Levothyroxine Sodium [Synthroid] 75 mcg PO DAILY 05/08/15 [History] Vitamin B Complex 1 cap PO DAILY 05/08/15 [History] Vitamin E 1,000 unit PO DAILY 05/08/15 [History] traMADol HCl [Ultram] 50 mg PO TID PRN 05/08/15 [History] Atorvastatin [Lipitor] 20 mg PO HS 07/21/17 [History] Citalopram Hydrobromide [CeleXA] 10 mg PO DAILY 07/21/17 [History] Montelukast [Singulair] 10 mg PO DAILY 07/21/17 [History] Omeprazole 40 mg PO DAILY 07/21/17 [History] Sertraline [Zoloft] 50 mg PO DAILY 07/21/17 [History] Topiramate 50 mg PO DAILY 07/21/17 [History] amLODIPine BESYLATE [Norvasc] 2.5 mg PO DAILY 07/21/17 [History] hydrOXYzine HCL [Atarax] 25 mg PO TID PRN 07/21/17 [History] Follow up Appointment(s)/Referral(s): Venancio Gleason MD [Primary Care Provider] - 3 Days Activity/Diet/Wound Care/Special Instructions: dc if ok with neurology
--- NOTE | 2017-07-23 16:31 | P.DS ---
Providers Date of admission: 07/21/17 20:34 Expected date of discharge: 07/23/17 Attending physician: Pantera Oneil Consults: 07/21/17 20:37 Consult Physician Urgent Consulting Provider: Gwen Hernandez Consult Reason/Comments: syncope Do you want consulting provider notified?: Yes Consult Physician Urgent Consulting Provider: Charito Crane Consult Reason/Comments: syncope Do you want consulting provider notified?: Yes Primary care physician: Venancio [facility] Course: FINAL DIAGNOSES: -Dehydration, likely due to no food or beverage eaten -Intermittent asthma, controlled -Gastroesophageal reflux disease. - Hyperlipidemia. -Essential hypertension. -Primary osteoarthritis of multiple joints. -Hypothyroidism -Possible Alzheimer's disease versus frontal lobe atrophy causing dementia. HOSPTIAL COURSE: 81-year-old female who presented after she felt dizzy and passed out. Neurology and cardiology consulted. Home medications resumed, ECG performed as well as placing patient on telemetry to monitor for arrhythmia. Carotid Doppler negative for any critical stenosis. Computed tomography scan of the brain reveals frontal lobe atrophy. IV fluids initiated, patient tolerating her diet, 75%. Ambulatory in the room to and from the bathroom no further episodes of dizziness. Patient states she feels much better, overall condition is stable and therefore is ready for discharge. PHYSICAL EXAM: PSYCHIATRY: Alert and oriented 3, mood and affect normal CARDIOVASCULAR: first and second sounds noted no edema RESPIRATORY: effort normal, diminished breath sounds bilaterally NEUROLOGIC: power and sensation grossly intact, no focal deficits Patient was seen and examined by nurse practitioner Ana Luisa Gonzalez in all elements of the case discussed with attending Dr. Oneil DISPOSITION: Discharge home to the care of her family. Patient Condition at Discharge: Stable Plan - Discharge Summary New Discharge Prescriptions: Continue Albuterol Sulfate [Proair Hfa] 1 - 2 puff INHALATION RT-Q6H PRN PRN Reason: Shortness Of Breath Levothyroxine Sodium [Synthroid] 75 mcg PO DAILY traMADol HCl [Ultram] 50 mg PO TID PRN PRN Reason: Pain Vitamin E 1,000 unit PO DAILY Vitamin B Complex 1 cap PO DAILY Topiramate 50 mg PO DAILY Sertraline [Zoloft] 50 mg PO DAILY Omeprazole 40 mg PO DAILY Montelukast [Singulair] 10 mg PO DAILY hydrOXYzine HCL [Atarax] 25 mg PO TID PRN PRN Reason: Anxiety amLODIPine BESYLATE [Norvasc] 2.5 mg PO DAILY Citalopram Hydrobromide [CeleXA] 10 mg PO DAILY Atorvastatin [Lipitor] 20 mg PO HS Discharge Medication List Albuterol Sulfate [Proair Hfa] 1 - 2 puff INHALATION RT-Q6H PRN 05/08/15 [ History] Levothyroxine Sodium [Synthroid] 75 mcg PO DAILY 05/08/15 [History] Vitamin B Complex 1 cap PO DAILY 05/08/15 [History] Vitamin E 1,000 unit PO DAILY 05/08/15 [History] traMADol HCl [Ultram] 50 mg PO TID PRN 05/08/15 [History] Atorvastatin [Lipitor] 20 mg PO HS 07/21/17 [History] Citalopram Hydrobromide [CeleXA] 10 mg PO DAILY 07/21/17 [History] Montelukast [Singulair] 10 mg PO DAILY 07/21/17 [History] Omeprazole 40 mg PO DAILY 07/21/17 [History] Sertraline [Zoloft] 50 mg PO DAILY 07/21/17 [History] Topiramate 50 mg PO DAILY 07/21/17 [History] amLODIPine BESYLATE [Norvasc] 2.5 mg PO DAILY 07/21/17 [History] hydrOXYzine HCL [Atarax] 25 mg PO TID PRN 07/21/17 [History] Follow up Appointment(s)/Referral(s): Venancio Gleason MD [Primary Care Provider] - 3 Days Activity/Diet/Wound Care/Special Instructions: dc if ok with neurology
[2017-07-23] MEDS: ATORVASTATIN 20 MG TAB PO SCH (21:26)
[2017-07-23] MEDS: MONTELUKAST 10 MG TAB PO SCH (21:26)
[2017-07-23] MEDS: SODIUM CHLORIDE 0.9% 1,000 ML IV SCH (21:27)
[2017-07-24] MEDS: hydrOXYzine HCL 25 MG TAB PO PRN (02:32)
[2017-07-24 06:21] LABS: Basophils # (A) 0.1 k/uL (0-0.2); Basophils % (A) 1 %; CH 30.7; CHCM 34.4; Eosinophils # (A) 0.2 k/uL (0-0.7); Eosinophils % (A) 4 %; HCT 38.5 % (34.0-46.0); HDW 2.66; HGB 12.6 gm/dL (11.4-16.0); Luc # (Auto) 0.11; Luc % (Auto) 2; Lymphocytes # (A) 0.9 k/uL (1.0-4.8); Lymphocytes % (A) 16 %; MCH 29.4 pg (25.0-35.0); MCHC 32.8 g/dL (31.0-37.0); MCV 89.6 fL (80.0-100.0); Mean Platelet Volume 8.1; Monocytes # (A) 0.4 k/uL (0-1.0); Monocytes % (A) 7 %; Neutrophils % (A) 71 %; RDW 14.3 % (11.5-15.5); WBC 5.6 k/uL (3.8-10.6); WBC (Perox) 5.73
[2017-07-24] MEDS: LEVOTHYROXINE 75 MCG TAB PO SCH (06:35)
[2017-07-24] MEDS: PANTOPRAZOLE 40 MG TABLET PO SCH (06:35)
[2017-07-24 06:45] LABS: Calcium 8.7 mg/dL (8.4-10.2); Potassium 3.7 mmol/L (3.5-5.1)
[2017-07-24] MEDS: ENOXAPARIN 40 MG/0.4 ML SYRINGE SQ SCH (08:34)
[2017-07-24] MEDS: SERTRALINE 50 MG TAB PO SCH (08:35)
[2017-07-24] MEDS: TOPIRAMATE 25 MG TAB PO SCH (08:35)
[2017-07-24] MEDS: amLODIPine 2.5 MG TAB PO SCH (08:35)
[2017-07-24] MEDS: CITALOPRAM HYDROBROMIDE 10 MG TAB PO SCH (08:35)
[2017-07-24] MEDS ORDERED: DOBUTamine DRIP for NUC MED 500 MG in DEXTROSE/WATER 1 250ML.BAG IV ONE (10:00)
--- NOTE | 2017-07-24 11:02 | P.CRDCN ---
History of Present Illness Consult reason: sycope History of present illness: Patient interviewed and examined. History was obtained from the daughter . Patient of Dr. Aponte Impression Recurrent dizzy spells and syncopal spells Sinus bradycardia/ SSS No inciting factors / normal TSH / no AV lala blocking drugs/ no negative chronotropic drugs Recent 2-D echo shows normal LV size and function, by Dr. Aponte Recent stress test in July 2017 showed normal myocardial perfusion and function Hypertension Plan I would recommend dual-chamber pacemaker implantation. 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, "stated "right eye vision affected by a clot" History of Any Multi-Drug Resistant Organisms: None Reported Past Surgical History: Breast Surgery, Tonsillectomy, Tubal Ligation Additional Past Surgical History / Comment(s): 2 benign lumps in rt breast removed, RIGHT CARPAL TUNNEL 05/2015 Past Anesthesia/Blood Transfusion Reactions: Motion Sickness, Postoperative Nausea & Vomiting (PONV) Past Psychological History: No Psychological Hx Reported Smoking Status: Former smoker Past Alcohol Use History: Rare Past Drug Use History: None Reported - Past Family History Mother Family Medical History: Cancer Additional Family Medical History / Comment(s): breast Medications and Allergies Home Medications Medication Instructions Recorded Confirmed Type Albuterol Sulfate [Proair Hfa] 1 - 2 puff INHALATION RT-Q6H PRN 05/08/15 History Levothyroxine Sodium [Synthroid] 75 mcg PO DAILY 05/08/15 07/21/17 History Vitamin B Complex 1 cap PO DAILY 05/08/15 07/21/17 History Vitamin E 1,000 unit PO DAILY 05/08/15 07/21/17 History traMADol HCl [Ultram] 50 mg PO TID PRN 05/08/15 07/21/17 History Atorvastatin [Lipitor] 20 mg PO HS 07/21/17 07/21/17 History Citalopram Hydrobromide [CeleXA] 10 mg PO DAILY 07/21/17 07/21/17 History Montelukast [Singulair] 10 mg PO DAILY 07/21/17 07/21/17 History Omeprazole 40 mg PO DAILY 07/21/17 07/21/17 History Sertraline [Zoloft] 50 mg PO DAILY 07/21/17 07/21/17 History Topiramate 50 mg PO DAILY 07/21/17 07/21/17 History amLODIPine BESYLATE [Norvasc] 2.5 mg PO DAILY 07/21/17 07/21/17 History hydrOXYzine HCL [Atarax] 25 mg PO TID PRN 07/21/17 07/21/17 History Allergies Allergy/AdvReac Type Severity Reaction Status Date / Time codeine Allergy Unknown Verified 07/21/17 18:52 Sulfa (Sulfonamide Allergy Unknown Verified 07/21/17 18:52 Antibiotics) Physical Exam Vitals: Vital Signs Temp Pulse Resp BP BP Pulse Ox 07/24/17 04:00 97.2 F L 50 L 18 138/82 96 07/23/17 23:40 62 18 07/23/17 23:32 97.1 F L 62 18 135/63 98 07/23/17 20:00 97.8 F 56 L 18 156/106 97 07/23/17 16:00 97.8 F 52 L 16 146/85 07/23/17 12:00 97.5 F L 55 L 16 147/84 Intake and Output 07/23/17 07/24/17 07/24/17 22:59 06:59 14:59 Intake Total 240 320 237 Output Total 800 Balance -560 320 237 Intake: Intake, IV Titration 320 Amount Sodium Chloride 0.9% 1, 320 000 ml @ 20 mls/hr IV . Q24H [facility] Rx#:[id number] Oral 240 237 Output: Urine 800 Other: Voiding Method Toilet Toilet Weight 67.4 kg Results 07/24/17 05:52 07/24/17 05:52 CBC 07/24/17 Range/Units 05:52 WBC 5.6 (3.8-10.6) k/uL RBC 4.30 (3.80-5.40) m/uL Hgb 12.6 (11.4-16.0) gm/dL Hct 38.5 (34.0-46.0) % Plt Count 185 (150-450) k/uL Comprehensive Metabolic Panel 07/24/17 Range/Units 05:52 Sodium 142 (137-145) mmol/L Potassium 3.7 (3.5-5.1) mmol/L Chloride 110 H (98-107) mmol/L Carbon Dioxide 23 (22-30) mmol/L BUN 18 H (7-17) mg/dL Creatinine 1.13 H (0.52-1.04) mg/dL Glucose 87 (74-99) mg/dL Calcium 8.7 (8.4-10.2) mg/dL Current Medications Generic Name Dose Route Start Last Admin Trade Name Freq PRN Reason Stop Dose Admin Amlodipine Besylate 2.5 mg 07/22/17 09:00 07/24/17 08:35 Norvasc PO 2.5 mg DAILY GEORGE Administration Atorvastatin Calcium 20 mg 07/22/17 21:00 07/23/17 21:26 Lipitor PO 20 mg HS GEORGE Administration Citalopram Hydrobromide 10 mg 07/22/17 09:00 07/24/17 08:35 Celexa PO 10 mg DAILY GEORGE Administration Enoxaparin Sodium 40 mg 07/22/17 09:00 07/24/17 08:34 Lovenox SQ 40 mg DAILY GEORGE Administration Hydroxyzine HCl 25 mg 07/21/17 21:52 07/24/17 02:32 Atarax PO 25 mg TID PRN Administration Anxiety Sodium Chloride 1,000 mls @ 20 mls/hr 07/21/17 20:45 07/23/17 21:27 Saline 0.9% IV 20 mls/hr .Q24H GEORGE Administration Levothyroxine Sodium 75 mcg 07/22/17 07:30 07/24/17 06:35 Synthroid PO 75 mcg AC-BRKFST GEORGE Administration Miscellaneous Information 1 each 07/23/17 12:45 Rx Info: Iv Contrast Was Given MISCELLANE 07/25/17 12:46 DAILY PRN Per Protocol Montelukast Sodium 10 mg 07/22/17 21:00 07/23/17 21:26 Singulair PO 10 mg HS GEORGE Administration Naloxone HCl 0.2 mg 07/21/17 20:34 Narcan IV Q2M PRN Opioid Reversal Pantoprazole Sodium 40 mg 07/22/17 07:30 07/24/17 06:35 Protonix PO 40 mg AC-BRKFST GEORGE Administration Sertraline HCl 50 mg 07/22/17 09:00 07/24/17 08:35 Zoloft PO 50 mg DAILY GEORGE Administration Topiramate 50 mg 07/22/17 09:00 07/24/17 08:35 Topamax PO 50 mg DAILY GEORGE Administration Tramadol HCl 50 mg 07/21/17 21:52 Ultram PO TID PRN Pain Intake and Output 07/23/17 07/24/17 07/24/17 22:59 06:59 14:59 Intake Total 240 320 237 Output Total 800 Balance -560 320 237 Intake: Intake, IV Titration 320 Amount Sodium Chloride 0.9% 1, 320 000 ml @ 20 mls/hr IV . Q24H [facility] Rx#:[id number] Oral 240 237 Output: Urine 800 Other: Voiding Method Toilet Toilet Weight 67.4 kg 07/24/17 05:52 07/24/17 05:52
--- NOTE | 2017-07-24 12:11 | PN ---
DATE OF SERVICE: 07/23/17 PRESENTING COMPLAINT: Passed out. INTERVAL HISTORY: This patient presented with an episode of passing out. [place] to be dehydration causing vasovagal. The patients heart rate is running close to 50s. Cardiology looking into that further. Otherwise, the patient feels well. at the bedside. Very keen to go home. Review of systems done for constitutional, cardiovascular, GI, pulmonary, relevant findings as above. Current medications are reviewed. On examination, temperature 97.5, pulse 50. Respirations 16. Blood pressure 147/84. General appearance sitting up, comfortable. Tired appearing. Eyes : Pupils equal. Conjunctivae normal. Neck: JVD not raised. Mass not palpable. Respiratory effort normal. Lungs Clear. Cardiovascular: First and second sounds normal. No edema. Abdomen: Soft, nontender. Liver and spleen not palpable. PSYCH: Forgetful but answering questions. Investigations: troponin negative. TSH normal. Telemetry close to 50. ASSESSMENT: 1. Episode of passing out likely from clinical dehydration causing vasovagal. 2. Sinus bradycardia. Cardiology following. 3. Intermittent asthma. 4. Gastroesophageal reflux disease. 5. Hyperlipidemia. 6. Essential hypertension. 7. Primary osteoarthritis of multiple joints bilaterally. 8. Hypothyroidism. 9. Frontal lobe atrophy causing dementia. PLAN: Care was discussed with the . Nursing informed me that Cardiology will talk to the patients and the patient tomorrow. KIT
--- NOTE | 2017-07-24 12:55 | P.PN ---
<Ana Luisa Gonzalez - Last Filed: 07/24/17 12:36> Progress Note - Text DATE OF SERVICE: 07/24/2017 PRESENTING COMPLAINT: Syncope INTERVAL HISTORY: 81-year-old female who presented with an episode of passing out. [place] to be caused dehydration causing a vasovagal response. Patient has been sinus bradycardic heart rate in the 50s. 07/24/2017: Patient was slated to go home on 07/23/2017 however heart rate was in the 40s and patient was held back. Additional history details obtained from the daughter revealing patient has been having multiple episodes of chest heaviness , passing out at home, dizziness or lightheadedness. Patient tolerating her diet eating about 50%, last BM prior to admission. Ambulatory to and from the bathroom with no assistance. REVIEW OF SYSTEMS: Done for constitutional ,cardiovascular, GI, pulmonary with relevant findings as above. CURRENT MEDICATIONS Norvasc, Lipitor, Celexa, and Lovenox, Atarax, Synthroid, Singulair. Zoloft, Protonix, Topamax, Ultram. PHYSICAL EXAM VITAL SIGNS: Temperature 97.2, pulse 50, respiratory rate 18, blood pressure 135/63, oxygen saturation 96% on room air. GENERAL APPEARANCE: Lying in bed, not in distress, but tired appearing EYES: Pupils equal. Conjunctiva normal. NECK: JVD not raised. Mass not palpable. RESPIRATORY: Respiratory effort normal. Lungs clear to auscultation. CARDIOVASCULAR: First and second sounds normal. No edema. ABDOMEN: Soft. Liver and spleen not palpable. No tenderness. No mass palpable. PSYCHIATRY: Alert and oriented x3, forgetful at times. Mood and affect normal. INVESTIGATIONS: CBC unremarkable, chloride 110 BUN 18 creatinine 1.13 Carotid ultrasound: Findings suspicious for hemodynamic significant stenosis proximal internal carotid artery on the left approximately 50-69% diameter reduction. CT angiogram of the head and neck: Significant stenosis in the carotid bulb on the left represents 60-70% diameter reduction ASSESSMENT: -Sinus bradycardia, rate in the 40s to 50s. -Dehydration, causing episode of passing out, vasovagal response. -Intermittent asthma, controlled -Gastroesophageal reflux disease. - Hyperlipidemia. -Essential hypertension. -Primary osteoarthritis of multiple joints. -Hypothyroidism -frontal lobe atrophy causing dementia. PLAN: Dual-chamber pacemaker implantation recommended by cardiology, possible placement later today or tomorrow. Continue current medication and treatment plan. Plan of care discussed with the patient patient and daughter at the bedside and they are in agreement with the plan. We'll follow closely SAND MILLER statement: Patient was seen and examined by nurse practitioner Ana Luisa Gonzalez and all elements of the case discussed with attending Dr. Oneil <Pantera Oneil - Last Filed: 07/24/17 23:15> Progress Note - Text Attending note. Date of service-07/24/2017 This patient was seen and examined by me . Discussed the patient with my nurse practitioner Ms. Gonzalez. Admitted with syncope. [place] to be from sick sinus syndrome. On examination: Lungs-clear, cardiovascular first seconds are normal Investigations: EKG-shows heart is done with 30s with increased NE interval Assessment and plan: Sick sinus syndrome causing sinus bradycardia symptomatic. Seen by Dr. Kauffman. Patient to get a pacemaker. Discussed with the patient and daughter.
[2017-07-24] MEDS: ATORVASTATIN 20 MG TAB PO SCH (20:40)
[2017-07-24] MEDS: SODIUM CHLORIDE 0.9% 1,000 ML IV SCH (20:40)
[2017-07-24] MEDS: MONTELUKAST 10 MG TAB PO SCH (20:40)
[2017-07-25] MEDS: SERTRALINE 50 MG TAB PO SCH (06:34)
[2017-07-25] MEDS: hydrOXYzine HCL 25 MG TAB PO PRN (06:34)
[2017-07-25] MEDS: ENOXAPARIN 30 MG/0.3 ML SYRINGE SQ SCH (06:34)
[2017-07-25] MEDS: PANTOPRAZOLE 40 MG TABLET PO SCH (06:34)
[2017-07-25] MEDS: TOPIRAMATE 25 MG TAB PO SCH (06:35)
[2017-07-25] MEDS: CITALOPRAM HYDROBROMIDE 10 MG TAB PO SCH (06:35)
[2017-07-25] MEDS: LEVOTHYROXINE 75 MCG TAB PO SCH (06:35)
[2017-07-25] MEDS: amLODIPine 2.5 MG TAB PO SCH (06:36)
[2017-07-25 06:43] LABS: Basophils % (A) 1 %; CH 30.7; CHCM 33.9; Eosinophils # (A) 0.2 k/uL (0-0.7); Eosinophils % (A) 4 %; HCT 38.2 % (34.0-46.0); HDW 2.61; HGB 12.8 gm/dL (11.4-16.0); Luc # (Auto) 0.08; Luc % (Auto) 2; Lymphocytes # (A) 0.5 k/uL (1.0-4.8); Lymphocytes % (A) 11 %; MCH 30.4 pg (25.0-35.0); MCHC 33.4 g/dL (31.0-37.0); Mean Platelet Volume 8.4; Monocytes # (A) 0.3 k/uL (0-1.0); Monocytes % (A) 7 %; Neutrophils # (A) 3.7 k/uL (1.3-7.7); Neutrophils % (A) 76 %; RDW 14.3 % (11.5-15.5); WBC 4.8 k/uL (3.8-10.6); WBC (Perox) 5.29
[2017-07-25 06:51] LABS: Calcium 8.7 mg/dL (8.4-10.2); Potassium 3.7 mmol/L (3.5-5.1)
[2017-07-25] MEDS ORDERED: ceFAZolin 1,000 MG in SODIUM CHLORIDE 0.9% IRRIGATIO 250 ML IRRIGATION ONE (07:00)
[2017-07-25] MEDS ORDERED: ceFAZolin 2 GM in SODIUM CHLORIDE 0.9% 100 ML IVPB ONE (07:00)
[2017-07-25 07:05] LABS: INR 1.1 (<1.2); Prothrombin Time 10.8 sec (9.0-12.0)
[2017-07-25] MEDS: SODIUM CHLORIDE 0.9% 1,000 ML IV SCH ×2 (10:06→10:07)
[2017-07-25] MEDS ORDERED: IV FLUID CONTINUATION 625 ML IV ONE (12:39)
[2017-07-25] MEDS ORDERED: MIDAZOLAM 2 MG/2 ML VIAL ONE (12:47)
[2017-07-25] MEDS ORDERED: IODIXANOL 320 MG/ML 100 ML IV ONE (12:54)
[2017-07-25] MEDS: MIDAZOLAM 2 MG/2 ML VIAL IV ONE ×2 (13:05→13:15)
[2017-07-25] MEDS ORDERED: LIDOCAINE 1% INJ 10MG/ML (20 ML MDV) SQ ONE ×2 (13:13→13:19)
--- NOTE | 2017-07-25 13:58 | P.PCN ---
Preoperative Diagnosis: Patient underwent EP procedure under conscious sedation/moderate sedation, monitoring of the level of consciousness and physiologic parameters including but not limited to vital signs and oxygenation. Patient tolerated the procedure well without any acute complications. Start time: 1310 Stop time: 1354 Postoperative Diagnosis: Procedure(s) Performed: Implants: Indications for Procedure: Operative Findings: Description of Procedure:
[2017-07-25] MEDS ORDERED: ACETAMINOPHEN TAB 325 MG TAB PO PRN (13:59)
[2017-07-25] MEDS ORDERED: ACETAMINOPHEN IV (For NPO) 1,000 MG in EMPTY BAG 1 BAG IVPB ONE (13:59)
--- NOTE | 2017-07-25 14:41 | P.PN ---
<Ana Luisa Gonzalez - Last Filed: 07/25/17 14:31> Progress Note - Text DATE OF SERVICE: 07/25/2017 PRESENTING COMPLAINT: Syncope INTERVAL HISTORY: 81-year-old female who presented with an episode of passing out. [place] to be caused dehydration causing a vasovagal response. Patient has been sinus bradycardic heart rate in the 50s. 07/25/2017: Patient seen in follow-up today, scheduled for permanent pacemaker placement. Lying in bed, remains nothing by mouth, family at the bedside, ambulatory with no assist, tolerating her diet, no BM today. 07/24/2017: Patient was slated to go home on 07/23/2017 however heart rate was in the 40s and patient was held back. Additional history details obtained from the daughter revealing patient has been having multiple episodes of chest heaviness , passing out at home, dizziness or lightheadedness. Patient tolerating her diet eating about 50%, last BM prior to admission. Ambulatory to and from the bathroom with no assistance. REVIEW OF SYSTEMS: Done for constitutional ,cardiovascular, GI, pulmonary with relevant findings as above. CURRENT MEDICATIONS Norvasc, Lipitor, Celexa, and Lovenox, Atarax, Synthroid, Singulair. Zoloft, Protonix, Topamax, Ultram. PHYSICAL EXAM VITAL SIGNS: Temperature 97.7, pulse 48, respiratory rate 17, blood pressure 143/71, oxygen saturation 97% on room air. GENERAL APPEARANCE: Lying in bed, not in distress, but tired appearing EYES: Pupils equal. Conjunctiva normal. NECK: JVD not raised. Mass not palpable. RESPIRATORY: Respiratory effort normal. Lungs clear to auscultation. CARDIOVASCULAR: First and second sounds normal. No edema. ABDOMEN: Soft. Liver and spleen not palpable. No tenderness. No mass palpable. PSYCHIATRY: Alert and oriented x3, forgetful at times. Mood and affect normal. INVESTIGATIONS: CBC unremarkable BUN 19, creatinine 1.20. ASSESSMENT: -Sinus bradycardia, rate in the 40s to 50s. -Sick sinus syndrome causing symptomatic sinus bradycardia -Dehydration, causing episode of passing out, vasovagal response. -Intermittent asthma, controlled -Gastroesophageal reflux disease. - Hyperlipidemia. -Essential hypertension. -Primary osteoarthritis of multiple joints. -Hypothyroidism -frontal lobe atrophy causing dementia. PLAN: Permanent pacemaker placement scheduled for 1:00 PM today. We'll continue current medication and treatment plan, plan of care discussed with the patient and family at the bedside and they're in agreement. We'll continue to follow closely [employer] statement: Patient was seen and examined by nurse practitioner Ana Luisa Gonzalez and all elements of the case discussed with attending Dr. Oneil <Pantera Oneli - Last Filed: 07/25/17 16:11> Progress Note - Text Attending note. Date of service-07/25/2017 This patient was seen and examined by me . Discussed the patient with my nurse practitioner Ms. Gonzalez. Had pacemaker placed today. Laying in bed comfortable tired. Family the bedside. On examination: Lungs-decreased breath sounds, left arm in a sling, dressing over pacemaker site. Laying flat in bed comfortable Investigations: Potassium 3.7 Assessment and plan: Syncope from sinus bradycardia from underlying sick sinus node disease leading to permanent pacemaker placement. Care was discussed with the family members the bedside. Questions answered.
--- NOTE | 2017-07-25 15:23 | OP ---
Ebonie Jones is an 81-year-old female patient who presented with an episode of loss of consciousness. The history was provided by her daughter. She was found on the floor and the patient does not remember how she got there. She has had recurrent dizzy spells in the past and probably another episode of syncope. She was found to be sinus bradycardia without any triggering factors. Dual chamber pacemaker was recommended for symptomatic bradycardia without any reversible cause. Patient was brought to the EP lab in a fasting state. Written informed consent was obtained prior to the procedure. The left shoulder area was prepped and draped as per protocol. 1% Xylocaine was used for local anesthesia. A 4 cm incision was made parallel to the pectoral lateral groove about 1.5 cm medial to it. The incision was carried down to the level of the pectoralis muscle. A subfascial pocket was made. Hemostasis was assured. The left axillary vein was accessed at two separate points via fluoroscopy and via appropriately sized introduce sheaths two leads were positioned in the right heart. Atrial lead was [employer] Model #1944, 46 cm length, and serial # [id number]. This was placed in the right atrial appendage. P-waves were 2.1 mV, pacing thresholds 1.75 v at 0.5 ms. Pacing impedance was 590 ohms. Ten volt test was negative. The RV lead was a [address] [employer] model #1948, serial #[id number]. This was positioned in the RV apex. The R-waves 11.9 mV, pacing impedance 930 ohms, pacing thresholds 0.5 v at 0.5 ms. Ten volt test is negative. Both leads were secured to the underlying pectoralis fascia and connected to the generator ([employer] model #MR8366, serial #[id number]). The leads and generator were then placed in the subfascial pocket. The wound was closed in 3 layers and dressed per protocol. The pacemaker was programmed to DDDR 50 to 120 bpm with VIP mode turned on for management of sick sinus syndrome and to avoid RV pacing. Patient tolerated the procedure well without any acute complications. cc: Vashti Darnell/ Viji PANTOJA
[2017-07-25] MEDS: ceFAZolin 2 GM in SODIUM CHLORIDE 0.9% 100 ML IVPB SCH ×2 (17:30→23:48)
[2017-07-25] MEDS: MONTELUKAST 10 MG TAB PO SCH (19:59)
[2017-07-25] MEDS: ATORVASTATIN 20 MG TAB PO SCH (19:59)
[2017-07-25] MEDS ORDERED: MELATONIN 5 MG TABLET PO SCH (21:30)
[2017-07-26] MEDS: ceFAZolin 2 GM in SODIUM CHLORIDE 0.9% 100 ML IVPB SCH ×2 (05:47→12:00)
[2017-07-26] MEDS: LEVOTHYROXINE 75 MCG TAB PO SCH (06:35)
[2017-07-26] MEDS: PANTOPRAZOLE 40 MG TABLET PO SCH (06:35)
[2017-07-26] MEDS: SODIUM CHLORIDE 0.9% 1,000 ML IV SCH (06:36)
--- NOTE | 2017-07-26 07:22 | XR ---
EXAMINATION TYPE: XR chest 2V DATE OF EXAM: 07/26/2017 COMPARISON: 07/21/2017 TECHNIQUE: PA and lateral views submitted. HISTORY: Lead placement FINDINGS: The lungs are clear and there is no pneumothorax, pleural effusion, or focal pneumonia. Double lead pacemaker seen no sizable thorax. Proximal lead in each ventricle. Arthropathy shoulders. Hypertroph ic and degenerative change of the spine. Retrocardiac density most likely related to hiatal hernia. IMPRESSION: 1. No postprocedural complication.
[2017-07-26] MEDS: ENOXAPARIN 30 MG/0.3 ML SYRINGE SQ SCH (08:58)
[2017-07-26] MEDS: amLODIPine 2.5 MG TAB PO SCH (08:58)
[2017-07-26] MEDS: CITALOPRAM HYDROBROMIDE 10 MG TAB PO SCH (09:01)
[2017-07-26] MEDS: SERTRALINE 50 MG TAB PO SCH (09:02)
[2017-07-26] MEDS: TOPIRAMATE 25 MG TAB PO SCH (09:02)
--- NOTE | 2017-07-26 09:21 | P.PN ---
Subjective This patient is a 81-year-old female who was admitted to the hospital yesterday for symptoms of acute syncope and memory loss. She was brought into the ER where she was evaluated yesterday. She underwent a computed tomography scan of the brain which revealed evidence of frontal lobe atrophy. She is being evaluated for possibility of partial seizures and an EEG has been ordered. She continues to do fairly well with no new symptoms to report today. We reviewed her carotid Doppler ultrasound results which reveal significant stenosis of the proximal internal carotid artery on the left. We are recommending vascular surgery consultation. Patient is also being evaluated by cardiology for cardiogenic syncope. She does show some evidence of sinus bradycardia on EKG. Her waiting further recommendations from cardiology. Her overall prognosis at this time remains guarded. Objective - Vital Signs Vital signs: Vital Signs Temp 98 F 07/23/17 08:00 Pulse 49 L 07/23/17 09:20 Resp 16 07/23/17 08:00 BP 137/71 07/23/17 09:20 Pulse Ox 96 07/23/17 08:00 Intake & Output 07/22/17 07/23/17 07/23/17 18:59 06:59 18:59 Intake Total 800 220 240 Balance 800 220 240 Weight 68.5 kg Intake: IV 100 Sodium Chloride 0.9% 1, 100 000 ml @ 100 mls/hr IV . Q10H STA Rx#:[id number] Intake, IV Titration 80 120 Amount Sodium Chloride 0.9% 1, 80 120 000 ml @ 20 mls/hr IV . Q24H GEORGE Rx#:[id number] Oral 720 240 Other: Voiding Method Toilet Toilet Toilet # Voids 1 1 - Exam Physical examination: PHYSICAL EXAMINATION: Patient is resting comfortably in bed. VITAL SIGNS: Blood pressure is [146/85]. Heart rate is [50]. Respiration is [16] . Temperature is [98.0.]. HEENT: Head is atraumatic, neck is supple, there were no carotid bruits. CHEST: Lungs are clear to auscultation and percussion. CARDIAC: S1, S2 normal rate and rhythm. There is no murmur. ABDOMEN: Soft and nontender. Bowel sounds are present. EXTREMITIES: There is no pedal edema. Peripheral pulses are present. Neurological examination: Patient's neurological examination is unchanged from yesterday. - Labs CBC & Chem 7: 08/25/17 06:21 07/25/17 06:21 Assessment and Plan (1) Acute encephalopathy Status: Acute Code(s): G93.40 - ENCEPHALOPATHY, UNSPECIFIED (2) Frontal lobe syndrome Status: Acute Code(s): F07.0 - PERSONALITY CHANGE DUE TO KNOWN PHYSIOLOGICAL CONDITION (3) Memory loss Status: Acute Code(s): R41.3 - OTHER AMNESIA (4) Syncope Status: Acute Code(s): R55 - SYNCOPE AND COLLAPSE Plan: This patient is a 81-year-old female who was admitted to Hospital with symptoms of recurrent syncope at home. Apparently she was out in the garden working when she collapsed. Neighbor noticed her fall and came to assist her. Apparently she was shaking on the ground and was unresponsive for several minutes. She was taken inside the home. EMS was called to the scene and she was transported by EMS to the emergency room and [facility] for further evaluation. She was seen in the ER by Dr. Yang. Computed tomography scan of the brain was completed and failed to reveal any acute changes. She was admitted to hospital for further evaluation. CAT scan of the brain was reviewed and does reveal significant frontotemporal lobe atrophy. According to the she is showing signs of worsening memory loss over the past year. We will continue close neurological follow-up of this patient. This patient is admitted with acute syncope etiology undetermined. We will obtain a routine EEG to rule out partial seizures. We'll await further recommendations from cardiology as well. We are waiting further recommendations from cardiology regarding sinus bradycardia and recent syncope. We will review her EEG when this is completed and we'll give further recommendations. Her overall prognosis at this time remains very guarded.
[2017-07-26 09:35] VITALS: RESP 16
--- NOTE | 2017-07-26 11:27 | P.DS ---
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 -Dehydration, -Intermittent asthma, controlled -Gastroesophageal reflux disease. - Hyperlipidemia. -Essential hypertension. -Primary osteoarthritis of multiple joints. -Hypothyroidism -frontal lobe atrophy causing dementia. Hospital course: This is a patient who was working outside or eating had what was felt to be dehydration initially causing her to pass out also found to have sick sinus syndrome with bradycardia felt to be the cause of her presentation and contraceptive for a pacemaker. Doing better now.. 2-D echo showed preserved LV function EF 55-60%. Care was discussed with the patient in detail today. Also discussed with Dr. Crow from cardiology. Patient been okay to be discharged. Discharge planning more than 35 minutes On examination: Cardiovascular first seconds are normal no edema. No tenderness over the pacemaker site. Left arm in a sling. Consultation: Dr. Crow from cardiology service. Dr. Crane from neurology Plan - Discharge Summary New Discharge Prescriptions: New Melatonin 5 mg PO HS tab Continue Albuterol Sulfate [Proair Hfa] 1 - 2 puff INHALATION RT-Q6H PRN PRN Reason: Shortness Of Breath Levothyroxine Sodium [Synthroid] 75 mcg PO DAILY traMADol HCl [Ultram] 50 mg PO TID PRN PRN Reason: Pain Vitamin E 1,000 unit PO DAILY Vitamin B Complex 1 cap PO DAILY Topiramate 50 mg PO DAILY Sertraline [Zoloft] 50 mg PO DAILY Omeprazole 40 mg PO DAILY Montelukast [Singulair] 10 mg PO DAILY hydrOXYzine HCL [Atarax] 25 mg PO TID PRN PRN Reason: Anxiety amLODIPine BESYLATE [Norvasc] 2.5 mg PO DAILY Citalopram Hydrobromide [CeleXA] 10 mg PO DAILY Atorvastatin [Lipitor] 20 mg PO HS Discharge Medication List Albuterol Sulfate [Proair Hfa] 1 - 2 puff INHALATION RT-Q6H PRN 05/08/15 [ History] Levothyroxine Sodium [Synthroid] 75 mcg PO DAILY 05/08/15 [History] Vitamin B Complex 1 cap PO DAILY 05/08/15 [History] Vitamin E 1,000 unit PO DAILY 05/08/15 [History] traMADol HCl [Ultram] 50 mg PO TID PRN 05/08/15 [History] Atorvastatin [Lipitor] 20 mg PO HS 07/21/17 [History] Citalopram Hydrobromide [CeleXA] 10 mg PO DAILY 07/21/17 [History] Montelukast [Singulair] 10 mg PO DAILY 07/21/17 [History] Omeprazole 40 mg PO DAILY 07/21/17 [History] Sertraline [Zoloft] 50 mg PO DAILY 07/21/17 [History] Topiramate 50 mg PO DAILY 07/21/17 [History] amLODIPine BESYLATE [Norvasc] 2.5 mg PO DAILY 07/21/17 [History] hydrOXYzine HCL [Atarax] 25 mg PO TID PRN 07/21/17 [History] Melatonin 5 mg PO HS tab 07/26/17 [Rx] Follow up Appointment(s)/Referral(s): Venancio Gleason MD [Primary Care Provider] - 3 Days (office is closed,please call to make appointment) Kenny Adame MD [STAFF PHYSICIAN] - 07/31/17 3:00 pm Patient Instructions/Handouts: Pacemaker (DC) Activity/Diet/Wound Care/Special Instructions: pacemaker instructions Discharge Disposition: HOME SELF-CARE
--- NOTE | 2017-07-26 11:52 | P.PN ---
Subjective Principal diagnosis: This a pleasant 81-year-old female patient who follows with Dr. Aponte in the office. Presented with an episode of syncope. She was found the floor and does not remember how she got there. She's also been having recurrent dizzy spells and found to be bradycardic. A pacemaker was recommended and procedure was completed just today. Interrogation today showed normally functioning dual- chamber pacer. LAC site with dressing dry and intact, no edema or hematoma. She is feeling well this morning. And anticipating discharge home this afternoon. Objective - Vital Signs Vital signs: Vital Signs Temp 97.1 F L 07/26/17 08:00 Pulse 54 L 07/26/17 08:00 Resp 16 07/26/17 08:00 BP 139/68 07/26/17 08:00 Pulse Ox 98 07/26/17 08:00 Intake & Output 07/25/17 07/26/17 07/26/17 18:59 06:59 18:59 Intake Total 305 380 Balance 305 380 Intake: IV 305 0.9 @20mls/hr 80 Intake, IV Titration 380 Amount Sodium Chloride 0.9% 1, 180 000 ml @ 20 mls/hr IV . Q24H GEORGE Rx#:[id number] ceFAZolin 2 gm In Sodium 200 Chloride 0.9% 100 ml @ 100 mls/hr IVPB Q6H GEORGE Rx#:[id number] Other: Voiding Method Toilet Toilet Toilet # Voids 3 - Exam PHYSICAL EXAMINATION: HEENT: Head is atraumatic, normocephalic. Pupils equal, round. Neck is supple. There is no elevated jugular venous pressure. HEART EXAMINATION: Heart sounds regular, S1 and S2 normal. No murmur or gallop heard. CHEST EXAMINATION: Lungs are clear to auscultation and precussion. No chest wall tenderness is noted on palpation or with deep breathing. LAC site soft with dressing dry and intact, no hematoma. ABDOMEN: Soft, nontender. Bowel sounds are heard. No organomegaly noted. EXTREMITIES: 2+ peripheral pulses with no evidence of peripheral edema and no calf tenderness noted. NEUROLOGIC patient is awake, alert and oriented x3. . - Labs CBC & Chem 7: 07/25/17 06:21 07/25/17 06:21 Assessment and Plan Plan: Assessment and plan #1 symptomatic sinus bradycardia, sick sinus syndrome #2 status post dual-chamber pacemaker implantation #3 hypertension #4 syncope From cardiology's perspective, patient may be discharged home this afternoon after completion of IV antibiotics series. Patient will follow up in the device clinic and with Dr. Aponte in one week. [employer] note has been reviewed, I agree with a documented findings and plan of care. Patient was seen and examined.
[2017-07-26 15:28] VITALS: BP 141/76; PULSE 56; TEMP 97.8
== END 2017-07-26 17:47 | disposition home or self-care (01) | DRG 242 ==
LOC: EC 17:55 → 6SEL 20:34
PROVIDERS: ADMIT Hospitalist; ATTEND Hospitalist
PROC: 02H63JZ Insertion of Pacemaker Lead into Right Atrium, Percutaneous Approach (ICD-10-PCS; principal; 2017-07-25 12:30)
PROC: 02HK3JZ Insertion of Pacemaker Lead into Right Ventricle, Percutaneous Approach (ICD-10-PCS; principal; 2017-07-25 12:30)
PROC: 0JH606Z Insertion of Pacemaker, Dual Chamber into Chest Subcutaneous Tissue and Fascia, Open Approach (ICD-10-PCS; principal; 2017-07-25 12:30)
DX: I49.5 Sick sinus syndrome (principal); G93.40 Encephalopathy, unspecified; F07.0 Personality change due to known physiological condition; G30.9 Alzheimer's disease, unspecified; I11.9 Hypertensive heart disease without heart failure; E86.0 Dehydration; F02.80 Dementia in other diseases classified elsewhere, unspecified severity, without behavioral disturbance, psychotic disturbance, mood disturbance, and anxiety; E78.5 Hyperlipidemia, unspecified; E89.0 Postprocedural hypothyroidism; I70.0 Atherosclerosis of aorta; J45.20 Mild intermittent asthma, uncomplicated; K21.9 Gastro-esophageal reflux disease without esophagitis; M15.9 Polyosteoarthritis, unspecified; Z79.899 Other long term (current) drug therapy; Z80.3 Family history of malignant neoplasm of breast; Z87.891 Personal history of nicotine dependence; Z88.5 Allergy status to narcotic agent; Z88.2 Allergy status to sulfonamides
CPT/HCPCS: 33208; 36415; 70450; 70496; 70498; 71020; 80048; 80053; 81001; 82550; 82553; 83735; 84443; 84484; 85025; 85610; 85730; 93005; 93306; 93880; 94760; 95819; 96360; 96361; 99285